=== PATIENT | male | born 2000 | race Caucasian/White ===

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

== ENCOUNTER 2021-06-19 12:10 | Emergency (ER) | payer BC ==
[~2021-06-19] VITALS: Ht 182.9 cm; Wt 65.8 kg
--- NOTE | 2021-06-19 12:34 | NUR ---
PT C/O N/V SINCE LAST NIGHT, - DIARRHEA. RR EVEN & UNLABORED. DENIES CP, SOB, DIZZINESS AT THIS TIME. WILL CONT TO MONITOR. PT SEEN & EVAL'D BY DR. TO.
[2021-06-19] MEDS ORDERED: ONDANSETRON HCL/PF 4 MG/2 ML VIAL ONE (12:37)
[2021-06-19] MEDS: ONDANSETRON HCL/PF 4 MG/2 ML VIAL IVP ONE (12:49)
[2021-06-19] MEDS: IV NS 0.9% 1,000 ML BAG IV ONE (12:49)
--- NOTE | 2021-06-19 12:50 | NUR ---
MEDICATED PER ERMD ORDER, PT DEMETRIUS WELL.
[2021-06-19 12:51] LABS: EOSINOPHILS % (AUTO) 0.1 % (0.0-6.0); HEMATOCRIT 50 % (39-51); HEMOGLOBIN 16.6 g/dL (13.5-17.5); LYMPHOCYTES # (AUTO) 0.3 K/uL (0.8-4.8); MEAN CORPUSCULAR HGB CONC 34 g/dl (31.0-36.0); MEAN CORPUSCULAR VOLUME 92 fL (80-96); MONOCYTES # (AUTO) 0.5 K/uL (0.1-1.30); MONOCYTES % (AUTO) 3.6 % (2.0-12.0); NEUTROPHILS % (AUTO) 94.3 % (43.0-81.0); PLATELET COUNT (AUTO) 256 K/uL (150-450); RED BLOOD CELL COUNT(AUTO) 5.39 MIL/uL (4.5-6.0); WHITE BLOOD COUNT (AUTO) 14.9 K/uL (4.3-11.0)
[2021-06-19 13:01] LABS: CALCIUM, SERUM 10.1 mg/dL (8.5-10.1); POTASSIUM 4.4 mmol/L (3.5-5.1)
[2021-06-19 13:08] LABS: ALBUMIN 4.7 g/dL (3.4-5.0); BILIRUBIN,DIRECT 0.1 mg/dL (0.0-0.2); BILIRUBIN,TOTAL 0.7 mg/dL (0.2-1.0); TOTAL PROTEIN, SERUM 8.7 g/dL (6.4-8.2)
[2021-06-19] MEDS ORDERED: ONDA4TAB5 PO (13:59)
--- NOTE | 2021-06-19 14:25 | NUR ---
IV removed. Catheter intact and site benign. Pressure and 4x4 applied to site. No bleeding noted.Patient discharged to home in stable condition. Written and verbal after care instructions given. Patient verbalizes understanding of instruction.
[2021-06-19 14:27] VITALS: BP 117/64
== END 2021-06-19 14:27 | disposition home or self-care (01) ==
LOC: ER 12:10
DX: R11.10 Vomiting, unspecified (principal); D72.829 Elevated white blood cell count, unspecified
CPT/HCPCS: 36415; 80048; 80076; 83690; 85025; 96361; 96374; 99283; J2405; J7030

== ENCOUNTER 2023-05-20 20:27 | Emergency (ER) | payer BC, OTHER ==
[~2023-05-20] VITALS: Ht 182.9 cm; Wt 72.6 kg
[~2023-05-20 20:27] MED LIST: ONDA4TAB5 PO
[2023-05-20 20:36] VITALS: BP 96/62; TEMP 102.2; O2SAT 99
[2023-05-20] MEDS ORDERED: AMOX-430 PO (20:51)
[2023-05-20] MEDS ORDERED: ONDA4TAB5 PO (20:52)
[2023-05-20] MEDS ORDERED: IBUPROFEN 600 MG TABLET ONE (20:53)
[2023-05-20] MEDS ORDERED: AMOX/CLAVULANATE 875 MG TABLET ONE (20:53)
[2023-05-20] MEDS: IBUPROFEN 600 MG TABLET PO ONE (20:59)
[2023-05-20] MEDS: ONDANSETRON 4 MG TAB.RAPDIS SL ONE (20:59)
[2023-05-20] MEDS: AMOX/CLAVULANATE 875 MG TABLET PO ONE (20:59)
== END 2023-05-20 21:15 | disposition home or self-care (01) ==
LOC: ER 20:30
DX: J02.9 Acute pharyngitis, unspecified (principal); Z79.899 Other long term (current) drug therapy
CPT/HCPCS: 99284; Q0162